=== PATIENT | male | born 1955 | race African-American/Black ===

== ENCOUNTER 2022-01-12 06:59 | Day surgery (SDC) | payer OTHER ==
[~2022-01-12] VITALS: Ht 185.4 cm; Wt 110.2 kg
[~2022-01-12 06:59] MED LIST: ASPI-543 PO; ATOR80TA PO; BENA20TA14 PO; CAR125T PO; CHOL10006 PO; MAGN400T40 PO
[2022-01-12] MEDS ORDERED: fentaNYL CITRATE 100 MCG/2 ML VL IV ONE (07:30)
[2022-01-12] MEDS ORDERED: MIDAZOLAM HCL 2MG/2ML 2ml VIAL (1mg/ml) IV ONE (07:30)
[2022-01-12] MEDS ORDERED: LIDOCAINE VISCOUS 2% 15ML UD MT ONE (07:30)
[2022-01-12 08:55] VITALS: BP 188/98
[2022-01-12 09:02] VITALS: BP 158/83
[2022-01-12 09:17] VITALS: BP 132/58
[2022-01-12 09:32] VITALS: BP 128/58
[2022-01-12 09:47] VITALS: BP 136/63
== END 2022-01-12 09:57 | disposition home or self-care (01) ==
LOC: CATH 06:59
PROVIDERS: ATTEND Internal Medicine Cardiovascular Disease
DX: Q21.0 Ventricular septal defect (principal); I37.1 Nonrheumatic pulmonary valve insufficiency; I10 Essential (primary) hypertension; E78.5 Hyperlipidemia, unspecified; Z79.899 Other long term (current) drug therapy; Z88.8 Allergy status to other drugs, medicaments and biological substances; Z98.890 Other specified postprocedural states; Z20.822 Contact with and (suspected) exposure to COVID-19; I73.9 Peripheral vascular disease, unspecified; N40.0 Benign prostatic hyperplasia without lower urinary tract symptoms
CPT/HCPCS: 93312; J2250; J3010; J7030; U0003; 99152